=== PATIENT | female | born 2000 | race Hispanic/Latino ===

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

== ENCOUNTER 2022-02-25 22:02 | Emergency (ER) | payer MEDICAID ==
[~2022-02-25] VITALS: Ht 162.6 cm; Wt 65.8 kg
[2022-02-25 22:04] VITALS: BP 124/60
[2022-02-25 22:47] LABS: APPEARANCE,URINE Clear (CLEAR); BILIRUBIN,URINE Negative (NEGATIVE); COLOR,URINE Yellow (YELLOW); GLUCOSE, URINE (UA) Negative (NEGATIVE); KETONES,URINE Negative (NEGATIVE); LEUKOCYTE ESTERASE ,URINE Trace (NEGATIVE); NITRATE,URINE Negative (NEGATIVE); OCCULT BLOOD,URINE Negative (NEGATIVE); PROTEIN,URINE Negative (NEGATIVE)
[2022-02-25 22:50] LABS: HCG,QUAL RESULT NEGATIVE (NEGATIVE)
[2022-02-25 23:00] LABS: RBC,URINE 0-1 /HPF (0-1)
[2022-02-25 23:01] LABS: BACTERIA,URINE Rare /HPF (None Seen)
[2022-02-25 23:02] LABS: SQUAMOUS EPITHELIAL CELL,UR Few /HPF (0-2)
== END 2022-02-25 23:26 | disposition home or self-care (01) ==
LOC: EDH 22:02
DX: B34.9 Viral infection, unspecified (principal); Z20.822 Contact with and (suspected) exposure to COVID-19
CPT/HCPCS: 81001; 81025; 87635; 87804 ×2; 87880; 99283; C9803